=== PATIENT | female | born 1965 | race Caucasian/White ===

== ENCOUNTER 2019-03-14 08:02 | Outpatient (CLI) | payer OTHER ==
--- NOTE | 2019-03-14 09:31 | ULT ---
HEPATIC ULTRASOUND INCLUDING COLOR AND SPECTRAL DOPPLER IMAGING: Date: 03/14/19 HISTORY: Chronic hepatitis. FINDINGS: No focal liver mass. Heterogeneous liver echogenicity, evidence for some fatty change. Common bile du ct 0.5 cm. An echogenic focus was seen in the neck of the gallbladder on 1 image only and could not b e reproduced. No gallbladder wall thickening or pericholecystic fluid. Hepatic venous and portal venous flow is antegrade. Spleen is within normal limits. IMPRESSION: Slightly heterogeneous liver echogenicity. No ductal dilatation. One image demonstrates an echogenic focus within the gallbladder, but this could not be reproduced on additional images. No gallbladder w all thickening or pericholecystic fluid. Antegrade hepatic and portal venous flow. POS: OFF
== END 2019-03-14 08:03 | disposition home or self-care (01) ==
LOC: BICULT 08:02
PROVIDERS: ATTEND Internal Medicine Gastroenterology
DX: B18.2 Chronic viral hepatitis C (principal); R93.2 Abnormal findings on diagnostic imaging of liver and biliary tract
CPT/HCPCS: 76705